=== PATIENT | male | born 1990 | race Caucasian/White ===

== ENCOUNTER 2024-08-27 12:56 | Emergency (ER) | payer BC ==
[~2024-08-27 12:56] MED LIST: Iopamidol 370 76% 100 ML VIAL ONE
[2024-08-27 13:16] LABS: #Basophils 0.06 10x3/uL (0.0-0.2); #Eosinophils 0.06 10x3/uL (0.0-0.5); #Monocytes 0.57 10x3/uL (0.0-1.1); #Neutrophils 3.79 10x3/uL (1.5-8.4); %Basophils 0.7 % (0.0-2.0); %Eosinophils 0.7 % (0.0-6.0); %Lymphocytes 45.6 % (18.0-47.0); %Monocytes 6.8 % (0.0-10.0); %Neutrophils 45.6 % (40.0-75.0); Hematocrit 44.4 % (38.8-50.0); Mean Corpuscular HGB CONC 33.8 g/dL (32.0-36.0); Mean Corpuscular Hemoglobin 29.2 pg (27.0-33.0); Mean Corpuscular Volume 86.5 fL (81.2-95.1); Mean Platelet Volume 9.8 fL (7.4-10.4); Platelet Count 279 10x3/uL (150-450); RBC Distribution Width 11.7 % (11.5-14.5); Red Blood Cell (RBC) Count 5.13 10x6/uL (4.32-5.72); White Blood Cell (WBC) Count 8.3 10x3/uL (3.5-10.5)
[2024-08-27 13:28] LABS: PTT 21.8 sec (22.0-33.0); Prothrombin Time 10.7 sec (9.5-12.1)
[2024-08-27 13:30] LABS: ALT (SGPT) 29 U/L (8-55); AST (SGOT) 26 U/L (5-34); Albumin 4.4 g/dL (3.5-5.0); Alkaline Phosphatase 59 U/L (40-110); Anion Gap 16 mmol/L (10-20); BUN (Urea Nitrogen) 22 mg/dL (8.9-20.6); Bilirubin, Total 0.3 mg/dL (0.2-1.2); Calc. Creatinine Clearance 0 mL/min (70-130); Calcium 9.9 mg/dL (7.8-10.44); Carbon Dioxide 25 mmol/L (22-29); Chloride 103 mmol/L (98-107); Estimated GFR 68; Glucose 122 mg/dL (70-105); Potassium 3.7 mmol/L (3.5-5.1); Protein, Total 7.4 g/dL (6.0-8.3); Sodium 140 mmol/L (136-145)
[2024-08-27 13:36] LABS: Troponin I Less than 0.010 ng/mL (< 0.028)
[2024-08-27] MEDS ORDERED: Ondansetron PF 4 MG/2 ML Vial ONE (13:40)
[2024-08-27] MEDS ORDERED: Morphine 4 MG/ML VIAL ONE ×2 (13:40→14:27)
[2024-08-27] MEDS ORDERED: Acetaminophen 325 MG TAB ONE (14:27)
[2024-08-27] MEDS ORDERED: Tenecteplase 50 MG ONE (15:00)
== END 2024-08-27 17:42 | disposition short-term general hospital (02) ==
LOC: CSHERS 12:56
DX: I63.9 Cerebral infarction, unspecified (principal)
CPT/HCPCS: 0042T; 36416; 70450; 71045; 80053; 84484; 85025; 85610; 85730; 93005; 94760; 96360; 96374; 96375; 96376; J2272; J2405; J3101